=== PATIENT | male | born 1955 | race Caucasian/White ===

== ENCOUNTER → 2018-01-06 | Outpatient (CLI) | payer BC ==
--- NOTE | 2018-01-06 10:06 | XR ---
EXAMINATION TYPE: XR ribs LT DATE OF EXAM: 01/06/2018 COMPARISON: NONE HISTORY: Pain TECHNIQUE: 4 views submitted FINDINGS: Slight cortical offset of the anterolateral left sixth rib. Lung is clear. No pneumothorax. Remaining osseous structures intact. IMPRESSION: 1. Correlate for point tenderness for a nondisplaced hairline fracture anterolateral left sixth rib.
== END ==
LOC: RADXRMAIN 09:38
PROVIDERS: ATTEND Nurse Practitioner Family
DX: S22.32XA Fracture of one rib, left side, initial encounter for closed fracture (principal)

== ENCOUNTER → 2022-06-24 | Outpatient (CLI) | payer MEDICARE ==
--- NOTE | 2022-06-24 14:00 | US ---
EXAMINATION TYPE: US thyroid st tissue head/neck DATE OF EXAM: 06/24/2022 COMPARISON: NONE CLINICAL HISTORY: E05.91 THYROTOXICOSIS. GLAND SIZE: Right Lobe: 5.1 x 2.3 x 2.3 cm Overall Parenchyma: heterogenous Left Lobe: 5.0 x 2.5 x 1.9 cm Overall Parenchyma: Heterogenous Isthmus Thickness: 0.2 cm NODULES RIGHT: # of nodules measured on right: 0 LEFT: # of nodules measured on left: 0.3 cm echogenic focus mid left lobe compatible with calcificat ion. ISTHMUS: # of nodules measured in the isthmus: 0 Bilateral neck scanned, no evidence of lymphadenopathy. IMPRESSION: 1. No evidence for suspicious thyroid nodule. 2. Left thyroid calcification.
== END | disposition home or self-care (01) ==
LOC: RADUSWWP 13:10
PROVIDERS: ATTEND Family Medicine
DX: E05.91 Thyrotoxicosis, unspecified with thyrotoxic crisis or storm (principal); H53.30 Unspecified disorder of binocular vision; I10 Essential (primary) hypertension
CPT/HCPCS: 76536